=== PATIENT | female | born 1990 | race Caucasian/White ===

== ENCOUNTER → 2016-04-17 | Outpatient (CLI) | payer BC ==
[~2016-04-17] MED LIST: ASPI-586 PO; DOCU100C37 PO; IBUP-1780 PO; OXYC-465 PO; PREN1TAB71 PO
== END ==
LOC: LABNPT 10:20
PROVIDERS: ATTEND Obstetrics & Gynecology
DX: O14.03 Mild to moderate pre-eclampsia, third trimester (principal)
CPT/HCPCS: 82570; 84156

== ENCOUNTER → 2016-04-27 | Outpatient (CLI) | payer BC | LOC: LABNPT 11:01 | PROVIDERS: ATTEND Obstetrics & Gynecology | DX: O28.8 Other abnormal findings on antenatal screening of mother (principal) | CPT/HCPCS: 82570; 84156 ==

== ENCOUNTER → 2016-05-04 | Outpatient (CLI) | payer BC | LOC: LAB 09:43 | PROVIDERS: ATTEND Obstetrics & Gynecology | DX: O28.8 Other abnormal findings on antenatal screening of mother (principal) | CPT/HCPCS: 82570; 84156 ==

== ENCOUNTER 2016-05-12 22:08 | Inpatient (IN) | payer BC ==
[~2016-05-12] VITALS: Ht 177.8 cm; Wt 105.2 kg
[2016-05-12 22:30] VITALS: BP 145/81
[2016-05-12] MEDS ORDERED: PREN1TAB71 PO (22:53)
[2016-05-12] MEDS ORDERED: ASPI-586 PO (22:53)
[2016-05-12] MEDS ORDERED: AMPICILLIN INJECTION 2,000 MG in NS (IVPB) 50 ML IV SCH (22:54)
[2016-05-12] MEDS: D5 LR IV SOLUTION 1,000 ML IV SCH (23:18)
[2016-05-12 23:19] LABS: BASOPHILS % (AUTO) 0 % (0-10); EOSINOPHILS # (AUTO) 0.1 10^3/uL (0.0-0.3); EOSINOPHILS % (AUTO) 1 % (0-10); LYMPHOCYTES % (AUTO) 13 % (12-44); MEAN CORPUSCULAR HEMOGLOBIN 32 PG (25-34); MEAN CORPUSCULAR HGB CONC 35 G/DL (32-36); MEAN CORPUSCULAR VOLUME 92 FL (80-99); MEAN PLATELET VOLUME 10.7 FL (7.4-10.4); MONOCYTES # (AUTO) 0.8 X 10^3 (0.0-1.0); MONOCYTES % (AUTO) 6 % (0-12); NEUTROPHILS # (AUTO) 12.2 X 10^3 (1.8-7.8); NEUTROPHILS % (AUTO) 81 % (42-75); PLATELET COUNT 204 10^3/uL (130-400); RED BLOOD COUNT 4.29 10^6/uL (4.35-5.85); RED CELL DISTRIBUTION WIDTH 13.1 % (10.0-14.5); WHITE BLOOD COUNT 15.1 10^3/uL (4.3-11.0)
[2016-05-12 23:20] VITALS: BP 137/78
[2016-05-12 23:35] LABS: BAND NEUTROPHILS 0 %; BASOPHILS % (MANUAL) 0 %; EOSINOPHILS % (MANUAL) 0 %; LYMPHOCYTES % (MANUAL) 17 %; NEUTROPHILS % (MANUAL) 81 %
[2016-05-12] MEDS ORDERED: SUFENTA 0.6MCG/ML BUPIVA 0.125 100 ML ONE (23:37)
[2016-05-13] VITALS (30 sets, daily range): BP systolic 117–162; BP diastolic 57–85
[2016-05-13] MEDS ORDERED: BUPIVACAINE 0.25% 30 ML (SENSORCAINE) VIAL ONE (00:12)
[2016-05-13] MEDS ORDERED: LIDOCAINE PF 2% 10 ML (XYLOCAINE) AMP ONE (00:12)
[2016-05-13] MEDS ORDERED: fentaNYL INJECTION 100 MCG/2 ML AMP ONE (00:13)
[2016-05-13] MEDS ORDERED: OXYTOCIN/NORMAL SALINE 500 ML IV ONE (00:22)
[2016-05-13] MEDS ORDERED: LACTATED RINGERS 1,000 ML IV SCH (00:40)
[2016-05-13] MEDS ORDERED: ONDANSETRON 4 MG/2 ML (SDV) Z0FRAN IV PRN (00:45)
[2016-05-13] MEDS ORDERED: diphenhydrAMINE 50 MG/ML INJ (BENADRYL) IV PRN (00:45)
[2016-05-13] MEDS ORDERED: NALOXONE 0.4 MG/ML 1 ML (NARCAN) VIAL IV PRN (00:45)
[2016-05-13] MEDS ORDERED: EPIDURAL (SUFENTA 0.6MCG/ML BUPIVA 0.125%) 100 ML BAG EPI PRN (00:45)
[2016-05-13] MEDS ORDERED: OXYTOCIN/NORMAL SALINE 500 ML IV SCH (00:52)
[2016-05-13] MEDS ORDERED: MEASLES,MUMPS,RUBELLA 1 EA INJ SC ONE (01:00)
[2016-05-13] MEDS ORDERED: BENZOCAINE/MENTHOL (DERMOPLAST) 56 ML CAN TP PRN (01:00)
[2016-05-13] MEDS ORDERED: TETANUS,DIPTH,PERTUSS P/F (BOOSTRIX) 0.5 ML VIAL IM ONE (01:00)
[2016-05-13] MEDS ORDERED: oxyCODONE/APAP 10/325MG (PERCOCET 10) TABLET PO PRN (01:00)
--- NOTE | 2016-05-13 01:00 | History & Physical ---
History and Physical this patient is a 25-year-old G1 white female who presented with complaint of contractions and rupture membranes. She labored rather rapidly and now is completely dilated. has been uncomplicated although patient did have a GBS positive culture at 35 weeks gestation. She was started on ampicillin at the time of admission. Patient reports having spontaneous rupture membranes with a large gush of clear fluid. Patient denies bleeding. Patient has had no specific problems with this . Allergies are none Medications are vitamins Past medical history, past surgical history, obstetric history, family history, and social histories are per the antepartum record HEENT exam is normal Neck is supple no lymphadenopathy no thyromegaly Abdomen is gravid soft nontender nondistended Extremities show no clubbing cyanosis. There is no Homans sign. Pelvic exam per the nurse shows a to 9+ and Ms. dilated essentially 100 percent effaced and 0+1 station vertex presentation Laboratory Tests Test 05/12/16 23:05 Range/Units Band Neutrophils 0 % Basophils # (Auto) 0.0 0.0-0.1 10^3/uL Basophils % (Manual) 0 % Basophils (%) (Auto) 0 0-10 % Blood Morphology Comment NORMAL Eosinophils # (Auto) 0.1 0.0-0.3 10^3/uL Eosinophils % (Manual) 0 % Eosinophils (%) (Auto) 1 0-10 % Hematocrit 39 35-52 % Hemoglobin 13.6 11.5-16.0 G/DL Lymphocytes # (Auto) 2.0 1.0-4.0 X 10^3 Lymphocytes % (Manual) 17 % Lymphocytes (%) (Auto) 13 12-44 % Mean Corpuscular Hemoglobin 32 25-34 PG Mean Corpuscular Hemoglobin Concent 35 32-36 G/DL Mean Corpuscular Volume 92 80-99 FL Mean Platelet Volume 10.7 H 7.4-10.4 FL Monocytes # (Auto) 0.8 0.0-1.0 X 10^3 Monocytes % (Manual) 2 % Monocytes (%) (Auto) 6 0-12 % Neutrophils # (Auto) 12.2 H 1.8-7.8 X 10^3 Neutrophils % (Manual) 81 % Neutrophils (%) (Auto) 81 H 42-75 % Platelet Count 204 130-400 10^3/uL Red Blood Count 4.29 L 4.35-5.85 10^6/uL Red Cell Distribution Width 13.1 10.0-14.5 % White Blood Count 15.1 H 4.3-11.0 10^3/uL CBC is normal. Assessment and plan term at 39+ weeks' gestation in spontaneous labor. Patient has labor fairly rapidly and anticipation is for vaginal delivery shortly. GBS culture was positive and patient has been given ampicillin 2 g loading dose term in labor at 39-4/7 weeks' gestation Allergies and Home Medications Allergies Coded Allergies: No Known Drug Allergies (Unverified , 05/12/16) Home Medications Aspirin 81 Mg Tablet.dr 81 MG PO DAILY (Reported) Vit/Iron Fumarate/FA 1 Each Tablet 1 EACH PO DAILY (Reported) Clinical Quality Measures DVT/VTE Risk/Contraindication: Risk Factor Score Per Nursin RFS Level Per Nursing on Admit: 2=Moderate FRANCINE NEVILLE MD May 13, 2016 1:00 am
[2016-05-13] MEDS ORDERED: LIDOCAINE/EPI 1%-1:200,000 (XYLOCAINE) 30 ML VIAL ONE (01:52)
[2016-05-13] MEDS ORDERED: AMPICILLIN INJECTION 1,000 MG in NS (IVPB) 50 ML IV SCH (03:00)
[2016-05-13] MEDS ORDERED: WITCH HAZEL(TUCKS) 40 EA JAR TOP PRN (04:00)
[2016-05-13] MEDS: KETOROLAC 30 MG/ML VIAL IV SCH ×4 (04:11→20:56)
[2016-05-13] MEDS ORDERED: CATHETER FLUSH 10 ML SYR IV SCH (06:00)
[2016-05-13] MEDS: D5 LR IV SOLUTION 1,000 ML IV SCH (06:46)
[2016-05-13] MEDS ORDERED: FLU TRIvalent (5 YOA+) 2016-17 (AFLURIA) 0.5 ML IM ONE (07:30)
--- NOTE | 2016-05-13 07:45 | Progress Note-Standard ---
Standard Progress Note Progress Notes/Assess & Plan Progress/Assessment & Plan patient is without complaint. She is ambulating, voiding, tolerating by mouth well, has good pain control. Vital Signs Date Time Temp Pulse Resp B/P Pulse Ox O2 Delivery O2 Flow Rate FiO2 05/13/16 04:13 80 18 127/68 Room Air 05/13/16 04:01 83 18 129/69 Room Air 05/13/16 03:46 90 18 131/63 Room Air 05/13/16 03:16 99.1 96 18 118/65 Room Air 05/13/16 03:04 86 18 117/57 Room Air 05/13/16 02:33 99.9 96 18 130/62 Room Air 05/13/16 02:18 99.2 110 18 135/63 Room Air 05/13/16 01:55 146 18 162/80 Room Air 05/13/16 01:40 96 18 145/85 Room Air 05/13/16 01:24 106 18 134/63 Room Air 05/13/16 01:07 100 18 150/80 99 Room Air 05/13/16 01:04 78 18 143/71 99 Room Air 05/13/16 01:01 78 18 144/69 100 Room Air 05/13/16 00:59 81 18 142/79 100 Room Air 05/13/16 00:56 91 18 139/74 100 Room Air 05/13/16 00:53 86 18 126/71 100 Room Air 05/13/16 00:50 90 18 142/79 100 Room Air 05/13/16 00:47 74 18 149/83 100 Room Air 05/13/16 00:44 83 18 150/80 98 Room Air 05/13/16 00:41 69 18 152/78 98 Room Air 05/13/16 00:38 74 18 151/76 98 Room Air 05/13/16 00:35 68 18 148/72 98 Room Air 05/13/16 00:32 99.3 71 18 150/72 98 Room Air 05/13/16 00:29 90 18 147/74 100 Room Air 05/13/16 00:26 72 18 141/68 100 Room Air 05/13/16 00:23 87 18 156/72 100 Room Air 05/13/16 00:20 90 18 144/70 100 Room Air 05/12/16 23:20 75 18 137/78 Room Air 05/12/16 22:30 98.8 87 18 145/81 Room Air vital signs are stable. Patient is afebrile. Fundus is firm below the umbilicus is nontender. Extremities show clubbing or cyanosis. There is no Homans sign. There is some pretibial pitting edema that is normal Assessment and plan status post term spontaneous vaginal delivery in the early hours this morning. Plan is for routine care today and consider for discharge home tomorrow FRANCINE NEVILLE MD May 13, 2016 7:45 am
[2016-05-13] MEDS: DOCUSATE SODIUM 100 MG (COLACE) CAP PO SCH ×2 (10:17→22:13)
--- NOTE | 2016-05-13 13:18 | PROCEDURE REPORT ---
PROCEDURE PHYSICIAN: FRANCINE NEVILLE DELIVERY NOTE: DATE OF DELIVERY: 05/13/2016 DATE OF DICTATION: 05/13/2016 The patient delivered by term spontaneous vaginal delivery of a viable female infant with Apgars of 9 and 9 at one and five minutes respectfully. Weight was 6 pounds 12 ounces. time was 0208. The patient delivered by term spontaneous vaginal delivery over a midline episiotomy performed under epidural analgesia and augmented with local. The episiotomy was performed as the patient was unable to push the baby through the perineum. After the episiotomy the patient delivered with the next contractions. The was bulb suctioned on delivery of the head and again on completion of delivery. The cord was doubly clamped, father cut the cord. The baby was passed to mom's abdomen. The baby had spontaneous cry and was quickly pink, moved all extremities, heart rate was over 100. Baby had excellent tone and reflexes. The placenta delivered spontaneously [place]. It was normal with a three-vessel cord. Cord bloods were obtained. The placenta was sent to pathology secondary to patient's GBS positive status. She had been given a single dose of ampicillin approximately 3 hours prior to delivery. The cervix, vagina rectum and perineum were examined and found intact except for the midline episiotomy, which was repaired with a single suture of 3-0 Vicryl Rapide in the usual manner without difficulty. Sponge and needle counts were correct on completion of delivery and repair. Estimated blood loss was around 200 mL the patient tolerated the delivery and repair well and remained in the LDR for recovery. The baby remained with the mom. Job ID: [id number] Dictated Date: 05/13/2016 02:44:04 Associate Property Manager Date: 05/13/2016 13:13:23 / [place]
--- NOTE | 2016-05-13 14:22 | Anesthesia-Regional Post-Op ---
Regional Patient Condition Mental Status: Alert, Oriented x3 Circulation: Same as Pre-Op Headache: Absent Sensation: Full Recovery Motor Block: Absent Post Op Complications Complications None Follow Up Care/Instructions Patient Instructions None needed. Anesthesia/Patient Condition Patient is doing well, no complaints, stable vital signs, no apparent adverse anesthesia problems. No complications reported per nursing. IVANA STEWARD CRNA May 13, 2016 14:22
[2016-05-13] MEDS ORDERED: OXYC-465 PO (16:38)
[2016-05-13] MEDS ORDERED: DOCU100C37 PO (16:38)
[2016-05-13] MEDS ORDERED: IBUP-1780 PO (16:38)
--- NOTE | 2016-05-13 16:42 | Discharge Instructions ---
Discharge Instructions Discharge Medications New, Converted or Re-Newed RX: RX on Chart Patient Instructions Patient Instructions: as directed Return to The Hospital For: as directed Activity & Diet Discharge Diet: No Restrictions Activity as Tolerated: No Orders-Post D/C & Referrals Follow Up Appt: Call to make follow up appt. for patient in 4 weeks. Activity Per routine post vaginal delivery instructions. Diet as tolerated Patient may shower or tub bathe as desired. FRANCINE NEVILLE MD May 13, 2016 4:42 pm
[2016-05-13] MEDS: IBUPROFEN 800 MG (MOTRIN) TAB PO SCH (19:56)
[2016-05-14] VITALS: BP 126/74
[2016-05-14] MEDS ORDERED: IBUPROFEN 800 MG (MOTRIN) TAB PO SCH (01:00)
[2016-05-14] MEDS: IBUPROFEN 800 MG (MOTRIN) TAB PO SCH ×4 (01:03→18:50)
[2016-05-14 06:51] VITALS: BP 112/71
--- NOTE | 2016-05-14 07:52 | Progress Note-Standard ---
Standard Progress Note Progress Notes/Assess & Plan Progress/Assessment & Plan patient is without complaint. She is ambulating, voiding, tolerating by mouth well, has good pain control. Vital Signs Date Time Temp Pulse Resp B/P Pulse Ox O2 Delivery O2 Flow Rate FiO2 05/13/16 04:13 80 18 127/68 Room Air 05/13/16 04:01 83 18 129/69 Room Air 05/13/16 03:46 90 18 131/63 Room Air 05/13/16 03:16 99.1 96 18 118/65 Room Air 05/13/16 03:04 86 18 117/57 Room Air 05/13/16 02:33 99.9 96 18 130/62 Room Air 05/13/16 02:18 99.2 110 18 135/63 Room Air 05/13/16 01:55 146 18 162/80 Room Air 05/13/16 01:40 96 18 145/85 Room Air 05/13/16 01:24 106 18 134/63 Room Air 05/13/16 01:07 100 18 150/80 99 Room Air 05/13/16 01:04 78 18 143/71 99 Room Air 05/13/16 01:01 78 18 144/69 100 Room Air 05/13/16 00:59 81 18 142/79 100 Room Air 05/13/16 00:56 91 18 139/74 100 Room Air 05/13/16 00:53 86 18 126/71 100 Room Air 05/13/16 00:50 90 18 142/79 100 Room Air 05/13/16 00:47 74 18 149/83 100 Room Air 05/13/16 00:44 83 18 150/80 98 Room Air 05/13/16 00:41 69 18 152/78 98 Room Air 05/13/16 00:38 74 18 151/76 98 Room Air 05/13/16 00:35 68 18 148/72 98 Room Air 05/13/16 00:32 99.3 71 18 150/72 98 Room Air 05/13/16 00:29 90 18 147/74 100 Room Air 05/13/16 00:26 72 18 141/68 100 Room Air 05/13/16 00:23 87 18 156/72 100 Room Air 05/13/16 00:20 90 18 144/70 100 Room Air 05/12/16 23:20 75 18 137/78 Room Air 05/12/16 22:30 98.8 87 18 145/81 Room Air vital signs are stable. Patient is afebrile. Fundus is firm below the umbilicus is nontender. Extremities show clubbing or cyanosis. There is no Homans sign. There is some pretibial pitting edema that is normal Assessment and plan status post term spontaneous vaginal delivery in the early hours this morning. Plan is for routine care today and consider for discharge home tomorrow May 14, 2016 Patient without complaint. She is ambulating, voiding, tolerating by mouth well , has good pain control. Patient denies chest pain, denies shortness of breath , denies nausea vomiting, denies headache. Vital Signs Date Time Temp Pulse Resp B/P Pulse Ox O2 Delivery O2 Flow Rate FiO2 05/14/16 06:51 96.6 70 18 112/71 99 Room Air 05/14/16 00:00 97.8 82 18 126/74 99 Room Air 05/13/16 19:51 98.0 80 18 136/79 100 Room Air 05/13/16 12:15 98.0 75 18 122/72 97 Room Air 05/13/16 09:30 98.1 75 20 131/81 100 Room Air vital signs are stable. Patient is afebrile. Fundus is firm below the umbilicus and nontender. Extremities show clubbing or cyanosis. There is no Homans sign. Assessment and plan day number 1 doing well. Plan is for routine convalescence care today and discharge home tomorrow FRANCINE NEVILLE MD May 14, 2016 7:52 am
[2016-05-14] MEDS ORDERED: TETANUS,DIPTH,PERTUSS P/F (BOOSTRIX) 0.5 ML VIAL IM ONE (09:09)
[2016-05-14] MEDS ORDERED: FLU TRIvalent (5 YOA+) 2016-17 (AFLURIA) 0.5 ML IM ONE (09:11)
[2016-05-14] MEDS: DOCUSATE SODIUM 100 MG (COLACE) CAP PO SCH ×2 (09:15→20:41)
[2016-05-14 09:23] VITALS: BP 122/77
[2016-05-14 15:24] VITALS: BP 110/68
[2016-05-14 20:30] VITALS: BP 127/77
[2016-05-15 02:20] VITALS: BP 113/79
[2016-05-15] MEDS: IBUPROFEN 800 MG (MOTRIN) TAB PO SCH ×2 (02:20→08:28)
--- NOTE | 2016-05-15 07:56 | Discharge Summary ---
Discharge Summary this patient is a 26-year-old white female admitted having regular contractions , prom, and pelvic pain. she was started on ampicillin for GBS prophylaxis due to a positive culture after 35 weeks gestation. We managed expectantly and labor did progress she subsequently had a term spontaneous vaginal delivery in the early hours of the morning. Delivery was uncomplicated patient recovered uneventfully and had routine care through the day. day number 1 patient is ambulating, voiding, tolerating fairly well, had good pain control and now in care through the day. day number 2 the patient now is again ambulating well voiding well tolerating by mouth well is requesting discharge home. Santiago for discharge home with follow-up in clinic. Principal diagnoses this hospitalization is term spontaneous vaginal delivery Secondary Diagnoses are spontaneous labor with spontaneous rupture membranes operation and procedures include spontaneous vaginal delivery Medications are Percocet and Motrin and Colace patient is continue her own vitamins She was given appropriate discharge instructions verbally and in writing and a copy those placed in chart. term spontaneous vaginal delivery Clinical Quality Measures DVT/VTE Risk/Contraindication: Risk Factor Score Per Nursin RFS Level Per Nursing on Admit: 2=Moderate FRANCINE NEVILLE MD May 15, 2016 07:56
[2016-05-15] MEDS: DOCUSATE SODIUM 100 MG (COLACE) CAP PO SCH (08:28)
[2016-05-15 08:30] VITALS: BP 135/87
== END 2016-05-15 15:05 | disposition home or self-care (01) | DRG 775 ==
LOC: WSo 22:08 → LDRP 22:08 → WSo 23:59 → LDRP 23:59
PROVIDERS: ADMIT Obstetrics & Gynecology; ATTEND Obstetrics & Gynecology
PROC: 10E0XZZ Delivery of Products of Conception, External Approach (ICD-10-PCS; principal; 2016-05-13)
PROC: 0W8NXZZ Division of Female Perineum, External Approach (ICD-10-PCS; 2016-05-13)
DX: O99.824 Streptococcus B carrier state complicating childbirth (principal); Z37.0 Single live birth; Z3A.39 39 weeks gestation of pregnancy; Z23 Encounter for immunization
CPT/HCPCS: 36415; 85007; 85027; 86850; 86900; 86901; 90715; 99212

== ENCOUNTER → 2019-06-02 | Outpatient (CLI) | payer BC ==
[2019-06-02 11:31] LABS: URINE CREATININE FOR RATIO 52 MG/DL (30-125); URINE PROTEIN FOR RATIO ONLY < 6 MG/DL (6-12)
== END ==
LOC: LABNPT 11:07
PROVIDERS: ATTEND Obstetrics & Gynecology
DX: O28.8 Other abnormal findings on antenatal screening of mother (principal)
CPT/HCPCS: 82570; 84156

== ENCOUNTER → 2019-06-12 | Outpatient (CLI) | payer BC ==
[~2019-06-12] MED LIST changes: +OXYC1TAB87 PO
[2019-06-12 12:01] LABS: URINE CREATININE FOR RATIO 43 MG/DL (30-125)
[2019-06-12 12:02] LABS: URINE PROTEIN FOR RATIO ONLY < 6 MG/DL (6-12)
== END ==
LOC: LABNPT 11:10
PROVIDERS: ATTEND Obstetrics & Gynecology
DX: O28.8 Other abnormal findings on antenatal screening of mother (principal)
CPT/HCPCS: 82570; 84156

== ENCOUNTER 2019-06-14 10:00 | Inpatient (IN) | payer BC ==
[2019-06-14] VITALS (32 sets, daily range): BP systolic 115–151; BP diastolic 56–95
[~2019-06-14] VITALS: Ht 180 cm; Wt 101.0 kg
[~2019-06-14 10:00] MED LIST changes: -OXYC1TAB87 PO
--- NOTE | 2019-06-14 10:00 | NUR ---
Arrived to unit ambulates self. Here with spontaneous labor. Wt obtained and to room 320. Gowned and urine sample obtained. To bed and oriented to room, call light and surroundings. bed controls explained. plan of care reviewed with pt.
[2019-06-14] MEDS ORDERED: D5 LR IV SOLUTION 1,000 ML IV SCH (10:16)
--- OUTSIDE RECORDS SUMMARY | 2019-06-14 10:19 | XMS REPORT ---
Author Author [employer] Organization [facility] Address [address] [address] Care Team Providers Care Help Desk Specialist Name Role Phone FRANCINE NEVILLE MD Unavailable Unavailable FRANCINE NEVILLE MD Unavailable Unavailable FRANCINE NEVILLE MD Unavailable Unavailable FRANCINE NEVILLE MD Unavailable Unavailable Allergies Normalized Allergy Reported Date of Reaction(s) Care Provider Facility Allergy Type classification allergen Allergy Onset DA (8 Unclassified No Known Drug 05-12-2016 - no information FRANCINE Not Available sources.) Allergies JAMIN , (64343) Medications No Information Problems Active Problems Problem Normalized Date of Normalized Normalized Provider Fac ility Classification Problem(s) Problem Problem Problem Sta tus Onset/Resoluti Duration on Residual 39 weeks 06-05-2019 - Episodic Active FRANCINE [facility] V ia codes; gestation of Susy NEVILLE unclassified [facility] - (1 source.) [place] ([address]) Immunizations Encounter for 06-05-2019 - Episodic Active CARRILLO S [facility] Via and screening immunization Susy NEVILLE for infectious [facility] - disease (6 [place] sources.) ([address]) Hypertension Mild to 06-05-2019 - Episodic Active FRANCINE [facility] Via complicating moderate Susy NEVILLE ; pre-eclampsia, [facility] - childbirth and third [place] the puerperium trimester (16731) (6 sources.) Other Other abnormal 06-05-2019 - Episodic Active FRANCINE [facility] Via complications findings on Susy NEVILLE of [facility] - (7 sources.) screening of [place] mother ([address]) Other Single live 06-05-2019 - Episodic Active FRANCINE [facility] Via and Susy NEVILLE delivery [facility] - including [place] normal (6 (78228) sources.) Other Streptococcus 06-05-2019 - Episodic Active FRANCINE [facility] Via complications B carrier JAMIN , Susy of [facility] management of mother (1 source.) Past or Other Problems Problem Normalized Date of Normalized Normalized Provider Fac ility Classification Problem(s) Problem Problem Problem Sta tus Onset/Resoluti Duration on Unclassified 39 weeks no information no information FRANCINE Not Available (5 sources.) gestation of JAMIN , (66323) MD Other Streptococcus no information no information FRANCINE Not Available complications B carrier JAMIN , (74738) of ; [facility] puerperium complicating affecting childbirth management of mother (5 sources.) Procedures Procedure Normalized Procedure Procedure Result Performer Facility Date 05-13-2016 DELIVERY OF PRODUCTS no information no name (no nathaniel ne) [facility] Via [facility] ([address]) DELIVERY OF PRODUCTS no information no name (no phone) Not A vailable (14472) [facility] 05-13-2016 DIVISION OF FEMALE no information no name (no phone ) [facility] Via [facility] PERINEUM, EXTERNAL AP [facility] ([address]81) DIVISION OF FEMALE no information no name (no phone) Not [facility] (60153) PERINEUM, EXTERNAL AP Immunizations Normalized Immunization Date Notes Care Provider Facili ty Immunization diphtheria, tetanus 05-14-2016 no information no name Not Available toxoids and (15231) acellular pertussis vaccine influenza virus 05-14-2016 no information no name Not [facility] vaccine, split virus (26484) (incl. purified surface antigen) Results No Information Vital Signs No Information Interventions No Information Plan of Treatment No Information Goals No Information Social History No Information Functional Status No Information Mental Status No Information Encounters Encounter Normalized Encounter Encounter Diagnosis Care Provi johnson Organization Date Type 05-13-2016 Evaluation and no information no name (no phone) n o organization name - management of (no phone) 05-15-2016 inpatient 05-12-2016 Evaluation and no information FRANCINE NEVILLE [facility] Via [place]y - management of (no phone) [facility] [place] 05-15-2016 inpatient (no phone) 06-02-2019 Patient encounter no information FRANCINE AKBAR [facility] Via Susy procedure (no phone) [facility] (no phone) 05-12-2016 Patient encounter no information no name (no phone) no organization name procedure (no phone) 05-04-2016 Patient encounter no information no name (no phone) no organization name procedure (no phone) 05-04-2016 Patient encounter no information FRANCINE AKBAR [facility] Via Susy procedure (no phone) [facility] (no phone) 04-27-2016 Patient encounter no information no name (no phone) no organization name procedure (no phone) 04-27-2016 Patient encounter no information FRANCINE AKBAR [facility] Via Susy procedure (no phone) [facility] (no phone) 04-17-2016 Patient encounter no information no name (no phone) no organization name procedure (no phone) 04-17-2016 Patient encounter no information FRANCINE AKBAR [facility] Via Susy procedure (no phone) [facility] (no phone) Patient encounter no information no name (no phone) no organ ization name procedure (no phone) Medical Equipment No Information Payers No Information Additional Source Comments This clinical document has been generated using [employer] software that has been certified by the Office of the National Coordinator for Health Information Technology (ONC 15.99.04.3023.Diam.31.00.0.740247) and the National Committee for Ordnance [employer] Installation Supervisor (NCQA, as an eMeasure certified technology). FOR RECORDS PERTAINING TO PATIENTS WHO ARE OR HAVE BEEN ENROLLED IN A CHEMICAL D EPENDENCY/SUBSTANCE ABUSE PROGRAM, SOME INFORMATION MAY BE OMITTED. This clinica l summary was aggregated from multiple sources. Caution should be exercised in using it in the provision of clinical care. This summary normalizes information from multiple sources, and as a consequence, information in this document may ma terially change the coding, format and clinical context of patient data. In marley tion, data may be omitted in some cases. CLINICAL DECISIONS SHOULD BE BASED ON T HE PRIMARY CLINICAL RECORDS. [employer] provides no warranty or guara ntee of the accuracy or completeness of information in this document.The followi ng information is based on time limited clinical information
--- NOTE | 2019-06-14 10:45 | NUR ---
Report to Elayne Brar RN
[2019-06-14 10:47] LABS: BASOPHILS % (AUTO) 0 % (0-10); EOSINOPHILS % (AUTO) 0 % (0-10); HEMATOCRIT 38 % (35-52); HEMOGLOBIN 12.9 G/DL (11.5-16.0); LYMPHOCYTES # (AUTO) 1.4 X 10^3 (1.0-4.0); LYMPHOCYTES % (AUTO) 13 % (12-44); MEAN CORPUSCULAR HEMOGLOBIN 31 PG (25-34); MEAN CORPUSCULAR HGB CONC 34 G/DL (32-36); MEAN CORPUSCULAR VOLUME 92 FL (80-99); MEAN PLATELET VOLUME 10.4 FL (7.4-10.4); MONOCYTES # (AUTO) 0.6 X 10^3 (0.0-1.0); MONOCYTES % (AUTO) 6 % (0-12); NEUTROPHILS # (AUTO) 8.8 X 10^3 (1.8-7.8); NEUTROPHILS % (AUTO) 81 % (42-75); PLATELET COUNT 198 10^3/uL (130-400); RED CELL DISTRIBUTION WIDTH 14.2 % (10.0-14.5); WHITE BLOOD COUNT 10.8 10^3/uL (4.3-11.0)
[2019-06-14] MEDS ORDERED: fentaNYL 2 mcg/ml BUPIVA 0.125 100 ML ONE (10:53)
--- NOTE | 2019-06-14 11:06 | NUR ---
binta hein called for epidural placement at this time
[2019-06-14] MEDS ORDERED: BUPIVACAINE 0.25% 30 ML (SENSORCAINE) VIAL ONE (11:13)
[2019-06-14] MEDS ORDERED: fentaNYL INJECTION 100 MCG/2 ML AMP ONE (11:14)
[2019-06-14] MEDS ORDERED: OXYTOCIN PRE-MIX DRIP 500 ML IV SCH ×3 (11:45→15:31)
[2019-06-14] MEDS ORDERED: OXYC1TAB87 PO (11:51)
[2019-06-14] MEDS ORDERED: DOCU100C37 PO (11:51)
[2019-06-14] MEDS ORDERED: IBUP-1780 PO (11:51)
--- NOTE | 2019-06-14 11:51 | Discharge Inst-Surgical ---
Discharge Inst-Surgical Depart Medication/Instructions New, Converted or Re-Newed RX: RX on Chart Consults/Follow Up Patient Instructions: As directed Orders & Referrals Follow Up Appt: Call to make follow up appt. for patient in 4 weeks. Activity Per routine post vaginal delivery instructions. Please call in RX to patient pharmacy. Diet as tolerated Patient may shower or tub bathe as desired. Activity Activity as Tolerated: No Diet Discharge Diet: No Restrictions FRANCINE NEVILLE MD Jun 14, 2019 11:51
[2019-06-14] MEDS ORDERED: LACTATED RINGERS 1,000 ML IV SCH (11:53)
--- NOTE | 2019-06-14 11:56 | History & Physical ---
History and Physical Date Seen by Provider: Jun 14, 2019 Time Seen by Provider: 11:54 This patient is a 28-year-old 2 para 1 white female with an EDC of 06/22/19 seen in clinic on this date found to be jaden and in labor cervix dilated 5-6 and dilated 80 percent effaced and 0+1 station vertex presensation and intact membranes. Her GBS culture after 35 weeks gestation was negative. She's had no problems with this [place] Allergies are none Medications are vitamins Medical social and surgical histories are per the antepartum record HEENT exam is normal Neck is supple no lymphadenopathy no thyromegaly Abdomen Is soft nontender nondistended Extremities show no clubbing cyanosis. There is no Homans sign. Pelvic exam is pending. Previous exam in clinic showed a cervix 5-6 cm dilated 80 percent effaced and 0+1 station vertex presentation with a anterior cervix and a bulging membrane Laboratory Tests 06/14/19 10:30 Assessment and plan term at 38+ weeks' gestation in active labor. We anticipate a vaginal delivery 38 week active labor Allergies and Home Medications Allergies Coded Allergies: No Known Drug Allergies (Unverified , 05/12/16) Home Medications Docusate Sodium 100 Mg Capsule, 100 MG PO BID Prescribed by: FRANCINE PEDRAZA on 06/14/19 1151 Ibuprofen 800 Mg Tablet, 800 MG PO Q6H Prescribed by: FRANCINE PEDRAZA on 06/14/19 1151 Oxycodone HCl/Acetaminophen 1 Each Tablet, 1-2 TAB PO Q4H PRN for PAIN Prescribed by: FRANCINE PEDRAZA on 05/13/16 1638 Oxycodone HCl/Acetaminophen 1 Each Tablet, 1 TAB PO Q4H Prescribed by: FRANCINE PEDRAZA on 06/14/19 1151 Vit/Iron Fumarate/FA 1 Each Tablet, 1 EACH PO DAILY, (Reported) Patient Home Medication List Home Medication List Reviewed: Yes Clinical Quality Measures DVT/VTE Risk/Contraindication: Risk Factor Score Per Nursin RFS Level Per Nursing on Admit: 1=Low/No VTE PPX FRANCINE NEVILLE MD Jun 14, 2019 11:56
[2019-06-14] MEDS ORDERED: METOCLOPRAMIDE INJ 10 MG/2 ML (REGLAN) IV PRN (12:00)
[2019-06-14] MEDS ORDERED: EPIDURAL (fentaNYL 2 MCG/ML BUPIVA 0.125%)100 ML BAG EPI PRN (12:00)
[2019-06-14] MEDS ORDERED: ONDANSETRON 4 MG/2 ML (SDV) Z0FRAN IV PRN (12:00)
[2019-06-14] MEDS ORDERED: NALOXONE 0.4 MG/ML 1 ML (NARCAN) VIAL IV PRN ×2 (12:00)
[2019-06-14] MEDS ORDERED: diphenhydrAMINE 50 MG/ML INJ (BENADRYL) IV PRN (12:00)
--- NOTE | 2019-06-14 13:10 | NUR ---
dr hayes updated on pt report. sve no change, uc pattern, pitocin started.
--- NOTE | 2019-06-14 13:41 | NUR ---
this rn updates dr hayes. pt co vaginal pressure therefore this rn performs sve. no cervical change, increasing pitocin. no new orders.
[2019-06-14] MEDS ORDERED: CATHETER FLUSH 10 ML SYR IV SCH (14:00)
--- NOTE | 2019-06-14 14:32 | NUR ---
dr hayes updated on pt report. sve /-1, co pressure, beginning to feel UC a little. Pitocin rate on 8, UC q2-3min. no new orders received.
--- NOTE | 2019-06-14 14:51 | NUR ---
1451: dr hayes called with pt update. 9cm, feeling pushy, ready for dr to come for delivery.
[2019-06-14] MEDS ORDERED: LIDOCAINE/EPI 2% 1:200,00 (XYLOCAINE) 10 ML VIAL ONE (15:16)
[2019-06-14] MEDS ORDERED: LIDOCAINE/EPI 2% 1:200,00 (XYLOCAINE) 10 ML VIAL INJ ONE (15:30)
[2019-06-14] MEDS ORDERED: WITCH HAZEL(TUCKS) 40 EA JAR ONE (15:44)
[2019-06-14] MEDS ORDERED: TETANUS,DIPTH,PERTUSS P/F (BOOSTRIX) 0.5 ML VIAL IM ONE (15:45)
[2019-06-14] MEDS ORDERED: ONDANSETRON 4 MG/2 ML (SDV) Z0FRAN IVP PRN (15:45)
[2019-06-14] MEDS ORDERED: oxyCODONE/APAP 5/325MG (PERCOCET 5) TABLET PO PRN (15:45)
[2019-06-14] MEDS ORDERED: MEASLES,MUMPS,RUBELLA 1 EA INJ SC ONE (15:45)
[2019-06-14] MEDS ORDERED: BENZOCAINE/MENTHOL (DERMOPLAST) 60 ML CAN TP PRN (15:45)
--- NOTE | 2019-06-14 16:18 | OPERATIVE REPORT ---
DATE OF SERVICE: 06/14/2019 The patient delivered by term spontaneous vaginal delivery, a viable male infant with Apgars of 8 and 9 at one and five minutes respectively, weight of 7 pounds 13 ounces. Cord blood pH is pending and time of 15:13 hours. The was delivered over a second-degree posterior vaginal wall laceration that extended up the left labia majora as well as a first-degree left periurethral laceration. The delivery was accomplished under epidural analgesia. The infant had a nuchal cord that was easily released. There was moderate meconium noted on amniotomy. RT was available at time of delivery; however, the infant was very vigorous, quickly pink, moved all extremities, had excellent tone and reflexes. The infant was bulb suctioned on delivery of the head and again on completion of delivery. The umbilical cord when pulseless was doubly clamped, father cut the cord, the baby being vigorous was passed to mother's abdomen. Cord bloods were obtained. The placenta delivered spontaneously [place]. It was normal, but quite heavily calcified and with a 3-vessel cord. The cord bloods were obtained prior to delivery of the placenta. The cervix, vagina, rectum, and perineum were examined and found intact, except for the previously noted left periurethral laceration that was full thickness first-degree and a second-degree posterior vaginal wall laceration extending into the left sulcus down to the introitus and then up the inside aspect of the left labia majora. Both of these defects were repaired with a single suture of 3-0 Vicryl Rapide in the usual manner without difficulty. The posterior defect was repaired under the epidural. The anterior defect that required infiltration of 1% lidocaine with epinephrine for pain management. Sponge and needle counts were correct on completion of delivery and repair. Estimated blood loss was around 250 mL. The patient tolerated the delivery and the repair well and remained in the LDR for recovery. The baby remained with the mother. Job ID: [id number] DocumentID: [id number] Dictated Date: 06/14/2019 15:40:17 Manager Implementation Date: 06/14/2019 16:17:56 Dictated By: FRANCINE NEVILLE MD
[2019-06-14] MEDS: KETOROLAC 30 MG/ML VIAL IVP SCH ×2 (16:23→23:01)
[2019-06-14] MEDS ORDERED: WITCH HAZEL(TUCKS) 40 EA JAR TOP PRN (16:30)
--- NOTE | 2019-06-14 16:36 | NUR ---
dr hayes called with pt update. 9cm, feeling pushy, ready for to come for delivery. Addendum: 06/14/19 at 1836 by ИРИНА HUERTAS RN wrong time. notified at [id number]
--- NOTE | 2019-06-14 18:00 | NUR ---
1535: recovery period begins. fundus firm, midline, level with umbilicus. scant bleeding. pericare by this rn. pt denies needs at this time. call light within reach. at bedside. 1550: fundus firm, midline, level with umbilicus. scant bleeding. pt skin to skin with infant. pt denies needs at this time. call light within reach. at bedside. 1605: fundus firm, midline, level with umbilicus. scant bleeding. pt at this time. pt denies needs at this time. call light within reach. at bedside. 1620: fundus firm, midline, level with umbilicus. scant bleeding. pt infant at this time. pt denies needs at this time. call light within reach. at bedside. 1635: fundus firm, midline, level with umbilicus. scant bleeding. pt at this time. pt denies needs at this time. call light within reach. at bedside. 1705: fundus firm, midline, level with umbilicus. light bleeding. pt denies needs at this time. call light within reach. holding at bedside. 1735: fundus firm, midline, level with umbilicus. light bleeding. pt denies needs at this time. call light within reach. holding infant at bedside. pericare by this rn. pt set up sitting on side of bed without difficulties. pt denies need to void at this time. dietary services arrive to deliver food trays. pt and eat before transfer. swaddled by this rn. 1800: pt transferred to room #312 by wheelchair. is pushed in infant crib by .
--- NOTE | 2019-06-14 18:30 | NUR ---
report received from KEYLA Urban.
[2019-06-14] MEDS: DOCUSATE SODIUM 100 MG (COLACE) CAP PO SCH (20:15)
[2019-06-15] VITALS: BP 122/72
[2019-06-15 04:00] VITALS: BP 121/65
[2019-06-15] MEDS: KETOROLAC 30 MG/ML VIAL IVP SCH (05:28)
[2019-06-15 08:00] VITALS: BP 122/68
[2019-06-15] MEDS: DOCUSATE SODIUM 100 MG (COLACE) CAP PO SCH (08:17)
--- NOTE | 2019-06-15 09:24 | Anesthesia-Regional Post-Op ---
Regional Patient Condition Mental Status: Alert, Oriented x3 Circulation: Same as Pre-Op Headache: Absent Sensation: Full Recovery Motor Block: Absent Post Op Complications Complications None Follow Up Care/Instructions Patient Instructions None needed. Anesthesia/Patient Condition Patient is doing well, no complaints, stable vital signs, no apparent adverse anesthesia problems. No complications reported per nursing. KANCHAN ABBOTT CRNA Jun 15, 2019 09:24
[2019-06-15] MEDS ORDERED: IBUPROFEN 800 MG (MOTRIN) TAB PO ONE (11:38)
[2019-06-15 12:00] VITALS: BP 141/68
--- NOTE | 2019-06-15 14:47 | NUR ---
report received from KYELA Stephen.. care assumed of pt.
[2019-06-15] MEDS ORDERED: IBUPROFEN 800 MG (MOTRIN) TAB PO SCH (15:45)
--- NOTE | 2019-06-15 16:43 | NUR ---
dismissal instructions given, verbalizes understanding. reviewed follow up appointment & dismissal Rx's. signature page signed, placed on chart.
--- NOTE | 2019-06-15 16:55 | NUR ---
[facility] Rx called into [facility] per pt's request.
--- NOTE | 2019-06-15 17:15 | NUR ---
pt ambulated to private vehicle with KEYLA Urban , and s/o @ side. infant secured in rear facing car seat. pt stable with no sx's of distress noted.
== END 2019-06-15 17:15 | disposition home or self-care (01) | DRG 806 ==
LOC: LDRP 10:00
PROVIDERS: ADMIT Obstetrics & Gynecology; ATTEND Obstetrics & Gynecology
PROC: 10E0XZZ Delivery of Products of Conception, External Approach (ICD-10-PCS; principal; 2019-06-14)
PROC: 0UQGXZZ Repair Vagina, External Approach (ICD-10-PCS; 2019-06-14)
PROC: 0UQMXZZ Repair Vulva, External Approach (ICD-10-PCS; 2019-06-14)
DX: O10.92 Unspecified pre-existing hypertension complicating childbirth (principal); O71.4 Obstetric high vaginal laceration alone; Z37.0 Single live birth; O77.0 Labor and delivery complicated by meconium in amniotic fluid; O69.81X0 Labor and delivery complicated by cord around neck, without compression, not applicable or unspecified; O71.82 Other specified trauma to perineum and vulva; Z3A.38 38 weeks gestation of pregnancy
CPT/HCPCS: 36415; 85025; 86780; 86850; 86900; 86901